=== PATIENT | male | born 1985 | race American Indian/Alaskan Native ===

== ENCOUNTER 2024-08-20 18:19 | Emergency (ER) | payer BC, SELFPAY ==
[2024-08-20 18:21] VITALS: BP 130/97
[2024-08-20 18:52] LABS: Urine Albumin Negative (Neg - Trace); Urine Bilirubin Negative (Negative); Urine Character Clear (Clear); Urine Color Yellow; Urine Glucose Negative (Negative); Urine Ketone Negative (Negative); Urine Leukocyte Negative (Negative); Urine Nitrite Negative (Negative); Urine Occult Blood Negative (Negative); Urine Urobilinogen Negative (Neg - 1+)
[2024-08-20 18:55] LABS: % Basophils 0.2 % (0-2); % Eosinophils 1.5 % (0-6); % Immature Granulocytes 0.1 % (0-0.5); % Monocytes 5.7 % (1.7-9.3); % Neutrophils 62.5 % (42.2-75.2); Absolute Eosinophils 0.1 10^3/uL (0-0.7); Absolute Lymphocytes 2.4 10^3/uL (1.2-3.4); Absolute Monocytes 0.5 10^3/uL (0.1-0.6); Hematocrit 43.7 % (39.0-52.0); Hemoglobin 14.6 g/dL (13.0-18.0); Mean Corp Hgb Conc. 33.4 g/dL (33.0-37.0); Mean Corpuscular Hgb 27.1 pg (27.0-31.0); Mean Corpuscular Volume 81.1 fL (80.0-94.0); Mean Platelet Volume 9.6 fL (7.4-10.4); Nucleated Red Blood Cells % 0 % (-); Platelet Count 218 10^3/uL (130-400); Red Blood Cell Count 5.39 10^6/uL (4.70-6.10); Red Cell Dist. Width 12.8 % (11.5-14.5)
[2024-08-20 19:06] LABS: ALT (SGPT) 40 U/L (0-50); AST (SGOT) 37 U/L (17-59); Albumin 5.2 g/dl (3.5-5.0); Alkaline Phosphatase 78 U/L (38-126); Blood Urea Nitrogen 16 mg/dl (9-20); Calcium 9.9 mg/dl (8.4-10.2); Carbon Dioxide 29 mmol/L (22-30); Chloride 99 mmol/L (98-107); Glucose 96 mg/dl (70-99); Lipase 159 U/L (23-300); Potassium 4.5 mmol/L (3.5-5.1); Sodium 139 mmol/L (135-145); Total Bilirubin 0.5 mg/dl (0.2-1.3); Total Protein 8.8 g/dl (6.3-8.2); eGFR > 60.00
[2024-08-20 19:56] VITALS: BMI 29.6
[2024-08-20 20:02] VITALS: BP 133/94
[2024-08-20] MEDS: TORADOL 15 MG IV (20:03)
[2024-08-20] MEDS: OMNIPAQUE 50 ML PO (20:05)
--- NOTE | 2024-08-20 20:24 | ED.GENMED ---
History of Present Illness
<Karson Christianson PA-C - Last Filed: 08/20/24 20:49>
General
Chief Complaint: Abdominal Pain
Source: patient
Time Seen by Provider: 08/20/24 19:34
History of Present Illness
History of Present Illness:
39-year-old male with history of achalasia requiring fundoplication surgery presents with onset of left sided abdominal pain this morning. Is a constant ache that radiates from underneath the left ribs down into the groin. It is made worse with
eating. No vomiting or fever. No chest pain or shortness of breath. No urinary symptoms. He is having trouble moving his bowels. No other complaints at this time
Phy Exam
<KIMANI Adams Last Filed: 08/20/24 20:49>
Physical Exam
Physical Exam:
General: Well-appearing male no acute respiratory distress
HEENT: Normocephalic atraumatic
Heart: Regular rate and rhythm
Lungs: Clear no wheeze
Abdomen soft tender to left mid abdomen no guarding rebound normal bowel sounds
Extremities: No cyanosis or edema
Skin: Warm, no rash .
Course
<Karson Christianson PA-C - Last Filed: 08/20/24 20:49>
Orders/Labs/Results
Orders:
Orders
08/20/24 18:23
IV Insert/Care/Rem.- Treatment PRN
08/20/24 18:43
Complete Blood Count/With Diff Urgent
Comprehensive Metabolic Panel Urgent
Lipase Urgent
Urinalysis Reflex To Culture Urgent
Date Specimen was Collected: 08/20/24
Time Specimen was Collected: 18:23
08/20/24 19:41
Ketorolac [Toradol] 15 mg IV NOW STA
08/20/24 19:47
CT Abd/pel W Iv And Oral Contr Urgent
Comment:
Reason For Exam: left sided abdominal pain, history of fundiplicati
Iohexol [Omnipaque] See Protocol PO NOW STA
08/20/24 23:10
Scrotum US [US Scrotum] Urgent
Comment:
Reason For Exam: left testicular pain
08/21/24 00:40
Acetaminophen [Tylenol] 1,000 mg PO NOW STA
08/21/24 01:44
Sulfamethox./Trimethoprim Ds [Bactrim Ds 800 mg/160 mg] 1 tablet PO NOW STA
Abnormal Lab Results
08/20/24
18:43
Total Protein 8.8 H g/dl
(6.3-8.2)
Albumin 5.2 H g/dl
(3.5-5.0)
08/20/24 18:43
08/20/24 18:43
Vital Signs
Initial and Last Documented VS:
Initial Vital Signs
Temp Pulse Resp BP Pulse Ox
99.8 F 92 16 130/97 100
08/20/24 18:21 08/20/24 18:21 08/20/24 18:21 08/20/24 18:21 08/20/24 18:21
Last Documented Vital Signs
Temp Pulse Resp BP Pulse Ox
99.2 F 72 18 118/83 98
08/20/24 20:02 08/21/24 00:41 08/21/24 00:41 08/21/24 00:41 08/21/24 00:41
<JEREMIAS Mckeon - Last Filed: 08/21/24 02:25>
Orders/Labs/Results
Orders:
Orders
08/20/24 18:23
IV Insert/Care/Rem.- Treatment PRN
08/20/24 18:43
Complete Blood Count/With Diff Urgent
Comprehensive Metabolic Panel Urgent
Lipase Urgent
Urinalysis Reflex To Culture Urgent
Date Specimen was Collected: 08/20/24
Time Specimen was Collected: 18:23
08/20/24 19:41
Ketorolac [Toradol] 15 mg IV NOW STA
08/20/24 19:47
CT Abd/pel W Iv And Oral Contr Urgent
Comment:
Reason For Exam: left sided abdominal pain, history of fundiplicati
Iohexol [Omnipaque] See Protocol PO NOW STA
08/20/24 23:10
Scrotum US [US Scrotum] Urgent
Comment:
Reason For Exam: left testicular pain
08/21/24 00:40
Acetaminophen [Tylenol] 1,000 mg PO NOW STA
08/21/24 01:44
Sulfamethox./Trimethoprim Ds [Bactrim Ds 800 mg/160 mg] 1 tablet PO NOW STA
Abnormal Lab Results
08/20/24
18:43
Total Protein 8.8 H g/dl
(6.3-8.2)
Albumin 5.2 H g/dl
(3.5-5.0)
08/20/24 18:43
08/20/24 18:43
Vital Signs
Initial and Last Documented VS:
Initial Vital Signs
Temp Pulse Resp BP Pulse Ox
99.8 F 92 16 130/97 100
08/20/24 18:21 08/20/24 18:21 08/20/24 18:21 08/20/24 18:21 08/20/24 18:21
Last Documented Vital Signs
Temp Pulse Resp BP Pulse Ox
99.2 F 72 18 118/83 98
08/20/24 20:02 08/21/24 00:41 08/21/24 00:41 08/21/24 00:41 08/21/24 00:41
<Karson Christianson PA-C - Last Filed: 08/20/24 20:49>
MDM/Problems Addressed
Differential Diagnosis Includes:
Abdominal pain. Differential could include diverticulitis versus renal colic versus bowel obstruction with no red source colitis
Will check labs. CT with oral and IV contrast pending secondary to history of bowel altering surgery
<JEREMIAS Mckeon - Last Filed: 08/21/24 02:25>
MDM/Problems Addressed
MDM/Problems Addressed:
Pt signed out to me:
CAT scan shows mild to moderate colonic fecal burden in the cecum and ascending colon no other significant colonic residue no evidence of bowel obstruction no bowel thickening, no obstructive uropathy.
On re/exam pt c/o of soreness to left testicle no swelling . US done: showing possible epididymitis . d/c w/ DR Eli will treat with BAcrim. pt sexually active with only.
In addition patient complains of constipation will have patient continue MiraLAX and add Colace with close outpatient family doctor and urology
Patient stable for discharge home
<JEREMIAS Mckeon - Last Filed: 08/21/24 02:25>
*Critical Care Note
Total Time (30-74mins, 75-104mins- exclusive of procedures): Not Applicable
ED Attending Note
<JEREMIAS Mckeon - Last Filed: 08/21/24 02:25>
-
Portions of this chart may have been created with voice recognition software.� Occasional wrong word or��sound alike� substitutions may have occurred due to the inherent limitations of voice recognition software.
Discharge Plan
Departure
Patient Disposition: Home (Routine Discharge)
Date of Disposition: 08/21/24
Time of Disposition: 01:47
Patient with high blood pressure during this ER visit?: Yes
Condition: Fair
Covid-19: Not Applicable
Discharge Problem:
Acute constipation, Epididymitis
Instructions: Epididymitis and orchitis, Constipation, Adult (DC)
Prescriptions:
New
sulfamethoxazole-trimethoprim [Bactrim DS] 800-160 mg tablet
1 tab PO BID Qty: 20 0RF
Referrals:
Connor Nguyen PA-C [Family Provider] -
Matti Chen MD [Active] -
Activity Restrictions/Additional Instructions:
Antibiotic as directed for the next 10 days. This medication was sent to pharmacy. In addition you may continue MiraLAX twice daily and add Colace for stool softener. Follow-up closely with your family doctor the next of days as well as urology.
Return if any worsening of symptoms.
Interventions
Interventions:
*Risk Screen - Suicide Last Done: 08/20/24 18:21
*General Assessment Last Done: 08/20/24 18:21
*Neglect/Abuse Screening Last Done: 08/20/24 18:21
[facility] Last Done: 08/20/24 20:00
Discharge Date and Time
Print Language: DIVEHI
[2024-08-20 22:13] VITALS: BP 129/83
[2024-08-21 00:41] VITALS: BP 118/83
[2024-08-21] MEDS: TYLENOL 1000 MG PO (00:45)
[2024-08-21] MEDS: BACTRIM DS 800 MG/160 MG 1 TABLET PO (01:54)
== END 2024-08-21 02:00 | disposition home or self-care (01) ==
LOC: EMR 18:19
PROVIDERS: Student in an Organized Health Care Education/Training Program; EMERGENCY PHYSICIAN Emergency Medicine; FAMILY PHYSICIAN Physician Assistant Medical
DX: N45.1 Epididymitis (principal); K59.09 Other constipation
CPT/HCPCS: 96374; 99284; 74177; 76870; 80053; 81003; 83690; 85025; 93976; Q9967